=== PATIENT | female | born 1950 | race Caucasian/White ===

== ENCOUNTER → 2021-01-05 | Outpatient (CLI) | payer MEDICARE ==
[2021-01-05 14:19] VITALS: BP 179/81; PULSE 56; RESP 16; TEMP 98.7; BMI 32.9
--- NOTE | 2021-01-05 15:50 | P.BASOAP ---
Subjective Progress Note Date: 01/05/21 Principal diagnosis: Morbid obesity 70-year-old female known to our service. Patient had a lap band placed in 2006. Starting weight 282 today is weighing 198. Had a recent EGD because she felt heartburn and some tightness. Patient's EGD showed some tightness of the band close to the GE junction. She was told band may have slipped proximally. Patient is not sure how much fluid is in the band. She has had no recent adjustments. Objective - Vital Signs Vital signs: Vital Signs Temp 98.7 F 01/05/21 14:12 Pulse 56 L 01/05/21 14:12 Resp 16 01/05/21 14:12 BP 179/81 01/05/21 14:12 Pulse Ox Intake & Output 01/04/21 01/05/21 01/05/21 18:59 06:59 18:59 Weight 89.811 kg - Exam Abdomen: Soft, nontender, nondistended Assessment/Plan (1) Morbid obesity Narrative/Plan: Recent EGD report reviewed with the patient. Band indentation is somewhat proximal but within normal limits. Classical gastric prolapse not present. Options reviewed. We'll into the band at this time. If the patient does not have any significant weight gain she will consider band removal. The patient's lap band port was palpated. The site was aseptically prepped. The Johnson needle was advanced into the port. A total of 4 ml of fluid was removed. Band is now empty. Pressure was held and a sterile dressing was applied. Plan: Date: 01/05/21 Initial Weight: 127.913 kg Initial BMI: 46.9 Current Weight: 89.811 kg Current BMI: 32.9 Type of Surgery: Total Volume in Band: Previous Volume: Volume Removed: Volume Added: Band Size:
== END | disposition home or self-care (01) ==
LOC: BARWHC3 13:49
PROVIDERS: ATTEND Surgery
DX: E66.01 Morbid (severe) obesity due to excess calories (principal); Z68.32 Body mass index [BMI] 32.0-32.9, adult; Z46.51 Encounter for fitting and adjustment of gastric lap band
CPT/HCPCS: G0463 ×2; 99203; 99212

== ENCOUNTER → 2021-05-04 | Outpatient (CLI) | payer MEDICARE ==
--- NOTE | 2021-05-04 14:50 | P.BASOAP ---
Subjective Progress Note Date: 05/04/21 Principal diagnosis: Morbid obesity Patient returns for recheck. She was last seen in December. Since then the patient says her pain in her left midabdomen has not changed. She has however had decreased restriction and subsequent weight gain. She has gained 16 pounds since then. Patient is requesting fluid be added back to the band. She does not believe the pain she is having has anything to do with her band at this point. Patient requesting all 4 mL be replaced. No nausea or vomiting. No GERD. Objective - Vital Signs Vital signs: Vital Signs Temp 98 F 05/04/21 14:04 Pulse 50 L 05/04/21 14:04 Resp 16 05/04/21 14:04 BP 150/60 05/04/21 14:04 Pulse Ox Intake & Output 05/03/21 05/04/21 05/04/21 18:59 06:59 18:59 Weight 97.069 kg - Exam Abdomen: Soft, nontender, nondistended Assessment/Plan (1) Morbid obesity Narrative/Plan: Patient would like the fluid added back to her band at this time. She and I have agreed at 3 mL. She has a [address] Patient will notify me with any issues of dysphagia or vomiting. Patient also notify me if her abdominal discomfort increases. Follow-up 3 months. The patient's lap band port was palpated. The site was aseptically prepped. The Johnson needle was advanced into the port. A total of 3 ml of fluid was added for a total of 3 mL. Pressure was held and a sterile dressing was applied. Plan: Date: 05/04/21 Initial Weight: 127.913 kg Initial BMI: 46.9 Current Weight: 97.069 kg Current BMI: 35.6 Type of Surgery: Total Volume in Band: Previous Volume: Volume Removed: Volume Added: Band Size:
== END ==
CPT/HCPCS: 99212

== ENCOUNTER → 2021-08-03 | Outpatient (CLI) | payer MEDICARE ==
[2021-08-03 13:59] VITALS: BP 152/86; PULSE 54; RESP 16; TEMP 98.3; BMI 36.2
--- NOTE | 2021-08-03 17:06 | P.BASOAP ---
Subjective Progress Note Date: 08/03/21 Principal diagnosis: Morbid obesity Patient returns for evaluation. Last seen in April. Had 3 mL added back to her band at that time. We had empty her previously of 4 mL but this did not impact her abdominal discomfort. That pain is now gone. She would like 1 mL or more added to her band at this time. No nausea or vomiting. Objective - Vital Signs Vital signs: Vital Signs Temp 98.3 F 08/03/21 13:57 Pulse 54 L 08/03/21 13:57 Resp 16 08/03/21 13:57 BP 152/86 08/03/21 13:57 Pulse Ox Intake & Output 08/02/21 08/03/21 08/03/21 18:59 06:59 18:59 Weight 98.883 kg - Exam Abdomen: Soft, nontender, nondistended Assessment/Plan (1) Morbid obesity Narrative/Plan: Patient doing well at this time. We'll add 1 mL to the band for a total 4 mL. Follow-up as needed. Plan: Date: 08/03/21 Initial Weight: 127.913 kg Initial BMI: 46.9 Current Weight: 98.883 kg Current BMI: 36.2 Type of Surgery: Total Volume in Band: 4 Previous Volume: Volume Removed: Volume Added: 1 Band Size:
== END ==
LOC: BARWHC3 13:50
PROVIDERS: ATTEND Surgery
DX: E66.01 Morbid (severe) obesity due to excess calories (principal); Z98.84 Bariatric surgery status; Z68.36 Body mass index [BMI] 36.0-36.9, adult
CPT/HCPCS: 99212